=== PATIENT | male | born 1950 | race Caucasian/White ===

== ENCOUNTER 2018-01-04 10:36 | Outpatient (CLI) | payer MEDICARE, OTHER ==
--- NOTE | 2018-01-04 21:25 | RAD ---
RIGHT FOOT THREE VIEWS: 01/04/18 No prior films were available for comparison. Patient is said to have a known fifth metatarsal fractu re. There indeed is a fracture at the base of the fifth metatarsal. There is slight distraction of the fr acture fragment. Not knowing the age of the injury, I cannot comment on whether healing is delayed or appropriate. My guess from looking at the bone would be that there may be delayed healing, as the am ount of callus present does not seem to be excessive. No fracture or periosteal reaction was seen els ewhere in the foot. There is a large calcaneal spur. IMPRESSION: Fracture at the base of the fifth metatarsal, age indeterminate, but substantially unhealed. POS: HOME
== END 2018-01-04 10:37 | disposition home or self-care (01) ==
LOC: BURRAD 10:36
PROVIDERS: ATTEND Family Medicine
DX: S92.354S Nondisplaced fracture of fifth metatarsal bone, right foot, sequela (principal)

== ENCOUNTER 2018-09-23 17:23 | Emergency (ER) | payer MEDICARE, OTHER ==
[2018-09-23] MEDS ORDERED: Ampicillin/Sulbactam 1.5 GM VIAL ONE (17:41)
[2018-09-23] MEDS ORDERED: Piperacillin/Tazobactam 4.5 GM VIAL ONE ×2 (17:42→17:58)
[2018-09-23] MEDS ORDERED: Morphine 4 MG/ML VIAL ONE (17:42)
[2018-09-23] MEDS ORDERED: Sodium Chloride 0.9% 100 ML ONE (17:58)
[2018-09-23 18:00] LABS: #Basophils 0.1 thou/uL (0.0-0.2); #Eosinphils 0.1 thou/uL (0.0-0.7); #Lymphocytes 2.4 thou/uL (1.20-3.40); #Monocytes 0.6 thou/uL (0.11-0.59); #Neutrophils 8.1 thou/uL (1.40-6.50); %Basophils 0.9 % (0.0-1.0); %Eosinophils 0.8 % (0.0-10.0); %Lymphocytes 21.1 % (21.0-51.0); %Monocytes 5.2 % (0.0-10.0); Hemoglobin 14.1 g/dL (14.0-18.0); Mean Corpuscular HGB CONC 31.5 g/dL (32.0-36.0); Mean Corpuscular Hemoglobin 28.7 pg (27.0-31.0); Mean Corpuscular Volume 91.1 fL (78.0-98.0); Platelet Count 271 thou/uL (130-400); RBC Distribution Width 13.8 % (11.5-14.5); Red Blood Cell (RBC) Count 4.91 mill/uL (4.70-6.10); White Blood Cell (WBC) Count 11.2 thou/uL (4.8-10.8)
[2018-09-23 18:14] LABS: ALT (SGPT) 64 U/L (8-55); AST (SGOT) 101 U/L (5-34); Albumin 4.1 g/dL (3.4-4.8); Alkaline Phosphatase 67 U/L (40-150); Anion Gap 14 mmol/L (10-20); BUN (Urea Nitrogen) 17 mg/dL (8.4-25.7); Bilirubin, Total 1.5 mg/dL (0.2-1.2); Calc. Creatinine Clearance 0 mL/min (70-130); Calcium 9.7 mg/dL (7.8-10.44); Carbon Dioxide 30 mmol/L (23-31); Chloride 99 mmol/L (98-107); Estimated GFR-MDRD 59; Globulin 2.8 g/dL (2.4-3.5); Glucose 156 mg/dL (80-115); Lipase 57 U/L (8-78); Potassium 4.3 mmol/L (3.5-5.1); Protein, Total 6.9 g/dL (5.8-8.1); Sodium 139 mmol/L (136-145)
== END 2018-09-23 19:38 | disposition short-term general hospital (02) ==
LOC: BURERS 17:23
DX: K81.0 Acute cholecystitis (principal); I10 Essential (primary) hypertension; J44.9 Chronic obstructive pulmonary disease, unspecified; F41.9 Anxiety disorder, unspecified; Z79.899 Other long term (current) drug therapy; Z79.82 Long term (current) use of aspirin
CPT/HCPCS: 80053; 83605; 83690; 84484; 85025; 96361; 96365; 96375; J0295; J2270; J2543; J3490

== ENCOUNTER 2019-06-15 09:41 | Outpatient (CLI) | payer MEDICARE ==
--- NOTE | 2019-06-15 21:09 | RAD ---
LEFT HIP TWO VIEWS: 06/15/19 No fracture was seen. The joint space is normal in width and the articular surfaces are smooth. I am not impressed by any excessive arthritic change. IMPRESSION: No acute finding. POS: HOME
--- NOTE | 2019-06-15 21:15 | RAD ---
PELVIS ONE VIEW: 06/15/19 The bony pelvis appears intact. No fracture or area of bony destruction was seen. The SI joints are s ymmetrical and the symphysis shows no widening or offset. The hip joints are symmetrical. The pubic r ings are symmetrical. IMPRESSION: No acute findings. POS: HOME
== END 2019-06-15 09:42 | disposition home or self-care (01) ==
LOC: BURRAD 09:41
PROVIDERS: ATTEND Family Medicine
DX: S76.212D Strain of adductor muscle, fascia and tendon of left thigh, subsequent encounter (principal)
CPT/HCPCS: 72170

== ENCOUNTER 2019-12-14 07:40 | Emergency (ER) | payer MEDICARE, OTHER ==
[2019-12-14] MEDS ORDERED: Adacel (T-DAP) 0.5 ML SYRINGE ONE (08:02)
[2019-12-14] MEDS ORDERED: Lidocaine 1% w/Epinephrine 1:100K 20 ML VIAL ONE (08:03)
== END 2019-12-14 08:30 | disposition home or self-care (01) ==
LOC: BURERS 07:40
DX: L02.31 Cutaneous abscess of buttock (principal); I10 Essential (primary) hypertension; J44.9 Chronic obstructive pulmonary disease, unspecified
CPT/HCPCS: 10060; 90471; 90715

== ENCOUNTER 2019-12-16 07:13 | Emergency (ER) | payer MEDICARE, OTHER ==
[2019-12-16] MEDS ORDERED: Bacitracin 1 PK ONE (08:54)
[2019-12-16] MEDS ORDERED: Lidocaine 4% Cream 5 GM TUBE w/ Tegaderm ONE (08:54)
== END 2019-12-16 07:44 | disposition home or self-care (01) ==
LOC: BURERS 07:13
DX: Z48.817 Encounter for surgical aftercare following surgery on the skin and subcutaneous tissue (principal); I10 Essential (primary) hypertension; J44.9 Chronic obstructive pulmonary disease, unspecified
CPT/HCPCS: 99281

== ENCOUNTER 2019-12-22 18:47 | Emergency (ER) | payer MEDICARE, OTHER | END 2019-12-22 19:15 | disposition home or self-care (01) | LOC: BURERS 18:47 | DX: Z48.817 Encounter for surgical aftercare following surgery on the skin and subcutaneous tissue (principal); I10 Essential (primary) hypertension; J44.9 Chronic obstructive pulmonary disease, unspecified ==

== ENCOUNTER 2021-04-26 23:37 | Emergency (ER) | payer MEDICARE, OTHER | END 2021-04-27 00:20 | disposition home or self-care (01) | LOC: BURERS 23:37 | DX: M54.50 Low back pain, unspecified (principal); I10 Essential (primary) hypertension; J44.9 Chronic obstructive pulmonary disease, unspecified | CPT/HCPCS: 99283 ==